=== PATIENT | male | born 1955 | race Caucasian/White ===

== ENCOUNTER 2016-12-06 09:25 | Outpatient (CLI) | payer MEDICAID ==
[~2016-12-06] VITALS: Ht 175.3 cm; Wt 82.7 kg
--- NOTE | ~2016-12-06 | HEMODYNAMI ---
PATIENT:NADEEN PEREZ MEDICAL RECORD: [id number] : 51 LOCATION:DDebCAT ADMISSION DATE: 12/06/16 Generatedon:12/06/201611:45 Patient name: NADEEN PEREZ Patient #: [id number] SSN: : 1955 Date of study: 12/06/2016 Page: Of Hemodynamic Procedure Report Patient Data Patient Demographics Procedure consent was obtained First Name: NADEEN Gender: Male Last Name: ANA : 1955 Patient #: [id number] Age: 61 year(s) Race: Additional ID: [id number] Contact details Address: [address] [place] [address] cr State: [place] [employer] Zip code: [address] Past Medical History History of disease Date Diagnosis Comments CAD Allergies: No known allergies Admission Admission Data Admission Date: 12/06/2016 Admission Time: 9:25 Lab Results Lab Result Date: 12/06/2016 Lab Result Time: 0:00 Biochemistry Name Units Result Min Max BUN mg/dl 18 --(---*)-- 7 18 Creatinine mg/dl 1.1 --(--*-)-- 0.6 1.3 CBC Name Units Result Min Max Hemoglobin g/dl 14.5 --(*---)-- 13.5 17.5 Procedure Procedure Types Cath Procedure Diagnostic Procedure [facility] w/Coronaries PCI Procedure Coronary Stent Initial Miscellaneous Procedures Moderate Sedation up to 30 minutes Procedure Description Procedure Date Procedure Date: 12/06/2016 Procedure Start Time: 11:17 Procedure End Time: 11:43 Procedure Staff Name Function Azar Sawyer MD Performing Physician Meeta Solis RN Nurse Eliud Knutson RT Monitor Jose Daniel Garvey RT Scrub Procedure Data Cath Procedure Fluoroscopy Diagnostic fluoroscopy Total fluoroscopy Time: time: 12.1 min 12.1 min Diagnostic fluoroscopy Total fluoroscopy dose: dose: 1903 mGy 1903 mGy Contrast Material Contrast Material Type Amount (ml) Isovue 300 157 Entry Location Entry Primary Successful Side Size Upsize Upsize Entry Closure Campos ccessful Closure Location (Fr) 1 (Fr) 2 (Fr) Remarks Device Remarks Radial Right 6 Fr Mechanical artery Short Compression Diagnostic catheters Device Type Used For End Catheter Placement Terumo 5Fr Basom 110cm LV Angiography catheter Procedure Complications No complications Procedure Medications Medication Administration Route Dosage Oxygen NC 2 l/min Heparin Flush Bag added to field 2 bags (1000units/500ml NS) Lidocaine 2% added to field 20 Radial Cocktail added to field 1 syringe (Verapomil 2mg/Nitro 400mcg/Heparin 1500units) Versed I.V. 1 mg Fentanyl I.V. 50 mcg Versed I.V. 1 mg Fentanyl I.V. 50 mcg Radial Cocktail I.A. 1 syringe (Verapomil 2mg/Nitro 400mcg/Heparin 1500units) Versed I.V. 1 mg Fentanyl I.V. 50 mcg Heparin Bolus I.V. 4000 units Hemodynamics Rest HGB: 14.5 (g/dl) Heart Rate: 80 (bpm) Gradients Valve Time Site Site Mean SEP/DFP Peak To Heart Use 1 2 (mmHg) (sec/min) Peak Rate (mmHg) (bpm) Aortic 11:18 LV AO 50 Snapshots Pre Cath Intra NCS Post Cath Vital Signs Time Heart Resp SPO2 NIBP (mmHg) Rhythm Pain Sedation Rate (ipm) (%) Status Level (bpm) 10:31:28 81 23 99 168/107(128) NSR 0 (11) 10(A) , No pain 10:35:50 80 16 96 168/107(161) NSR 0 (11) 10(A) , No pain 10:40:06 74 14 97 161/104(140) NSR 0 (11) 10(A) , No pain 10:44:20 76 15 96 157/104(129) NSR 0 (11) 10(A) , No pain 10:48:34 76 16 96 153/96(124) NSR 0 (11) 10(A) , No pain 10:52:44 78 16 95 146/99(120) NSR 0 (11) 10(A) , No pain 10:56:56 76 16 95 144/95(121) NSR 0 (11) 10(A) , No pain 11:01:06 76 16 94 140/93(121) NSR 0 (11) 10(A) , No pain 11:05:16 75 16 95 139/93(106) NSR 0 (11) 10(A) , No pain 11:09:23 75 16 95 133/91(106) NSR 0 (11) 10(A) , No pain 11:13:31 73 16 95 134/91(106) NSR 0 (11) 10(A) , No pain 11:17:41 74 16 96 134/88(104) NSR 0 (11) 9(A) , No pain 11:21:47 78 16 97 114/78(93) NSR 0 (11) 9(A) , No pain 11:25:51 76 15 98 117/81(97) NSR 0 (11) 9(A) , No pain 11:29:59 75 15 98 127/74(104) NSR 0 (11) 9(A) , No pain 11:34:08 74 15 97 125/77(106) NSR 0 (11) 9(A) , No pain 11:38:16 73 15 96 125/78(96) NSR 0 (11) 9(A) , No pain 11:42:26 75 16 96 124/78(105) NSR 0 (11) 9(A) , No pain Medications Time Medication Route Dose Verified Delivered Reason Note s Effectiveness by by 10:33:16 Oxygen NC 2 l/min Azar Meeta Per physician Silverio Solis RN 10:33:24 Heparin Flush added 2 bags Azar Askew used for Bag to Silverio Sawyer MD procedure (1000units/500ml field NS) 10:33:33 Lidocaine 2% added 20ml Azar Carballorey used for to vial Silverio Sawyer MD procedure field 10:33:39 Radial Cocktail added 1 Azar Azar used for (Verapomil to syringe Silverio Sawyer MD procedure 2mg/Nitro field 400mcg/Heparin 1500units) 11:12:25 Versed I.V. 1 mg Azar Meeta for sedation Silverio Solis RN 11:12:32 Fentanyl I.V. 50 mcg Azar Meeta for sedation Silverio Solis RN 11:14:20 Versed I.V. 1 mg Azar Meeta for sedation Silverio Solis RN 11:14:22 Fentanyl I.V. 50 mcg Azar Meeta for sedation Silverio Solis RN 11:16:30 Versed I.V. 1 mg Azar Garciaecca for sedation Silverio Solis RN 11:16:43 Fentanyl I.V. 50 mcg Azar Meeta for sedation Silverio Solis RN 11:17:55 Radial Cocktail I.A. 1 Azar Askew for (Verapomil syringe Silverio Sawyer MD vasodilation 2mg/Nitro 400mcg/Heparin 1500units) 11:22:03 Heparin Bolus I.V. 4000 Azar Garciaecca for dose units Silverio oSlis RN anticoagulation verified by dr sawyer Procedure Log Time Note 10:10:44 Eliud Knutson RT(R) sent for patient. Start room use. 10:17:53 Time tracking: Regular hours 10:17:56 Plan of Care:Hemodynamics will remain stable., Cardiac rhythm will remain stable., Comfort level will be maintained., Respiratory function will remain adequate., Patient/ family verbilizes understanding of procedure., Procedure tolerated without complication., Recovers from procedure without complications.. 10:28:01 Patient received from Pre/Post Procedure Room to [facility] 2 Alert and oriented. Tansferred to table in Supine position. 10:28:02 Warm blankets applied, and aleksander hugger turned on for patient comfort. 10:28:03 Correct patient and procedure confirmed by team. 10:28:04 Signed procedure consent form obtained from patient. 10:28:05 ECG and BP/O2 sat monitors applied to patient. 10:30:16 Vital chart was started 10:33:16 Oxygen 2 l/min NC was administered by Meeta Solis RN; Per physician; 10:33:24 Heparin Flush Bag (1000units/500ml NS) 2 bags added to field was administered by Azar Sawyer MD; used for procedure; 10:33:33 Lidocaine 2% 20ml vial added to field was administered by Azar Sawyer MD; used for procedure; 10:33:39 Radial Cocktail (Verapomil 2mg/Nitro 400mcg/Heparin 1500units) 1 syringe added to field was administered by Azar Sawyer MD; used for procedure; 10:37:06 Baseline sample Acquired. 10:37:11 Rhythm: sinus tachycardia 10:37:12 Full Disclosure recording started 10:38:38 H&P Date Dictated: 12/04/2016 Within 30 days and on chart., H&P Addendum completed by physician on day of procedure. (MUST COMPLETE FOR ALL OUTPATIENTS). 10:38:39 Pre-procedure instructions explained to patient. 10:38:39 Pre-op teaching completed and patient verbalized understanding. 10:38:40 Family in waiting room. 10:38:42 Patient NPO since Midnight. 10:38:49 Patient allergic to No known allergies 10:38:51 Is the patient allergic to Iodine/contrast media? No. 10:38:55 Is patient on blood thinner?Yes 10:38:57 ACC The patient was administered the following blood thiners within the last 24 hours: ACCAspirin, ACCPlavix 10:38:59 Patient diabetic? No. 10:39:00 ----Pre-sedation anethsthesia assessment.---- 10:39:03 Previous problem with sedation/anesthesia? No ? 10:39:05 Snore? Yes 10:39:06 Sleep apnea? Yes 10:39:07 Deviated septum? No 10:39:08 Opens mouth fully? Yes 10:39:09 Sticks out tongue? Yes 10:39:10 Airway obstruction? No ? 10:39:16 Dentures? Yes upper plate in 10:39:19 Pre procedure: right dorsailis pedis pulse 1+ Palpable, but thready & weak; easily obliterated 10:39:22 Modified Flavio's test Ulnar < 7 seconds 10:39:26 Patient pain scale 0/10 ?. 10:39:30 IV patent on arrival in left antecubital with 0.9% NaCl at 10ml/hr. 10:39:55 Lab Result : BUN 18 mg/dl 10:39:55 Lab Result : Hemoglobin 14.5 g/dl 10:39:55 Lab Result : Creatinine 1.1 mg/dl 10:40:00 Lab results completed and on chart. 10:40:04 Right Radial & Right Groin area was prepped with chlora-prep and draped in sterile fashion 10:40:05 Alarms reviewed by R. N. 10:40:06 Sharps counted by scrub and verified by R.N. 11:03:53 Zero performed for pressure channel P1 11:04:10 Use device set Radial Dx 11:04:11 Acist Syringe opened to sterile field. 11:04:12 Medline Cath Pack opened to sterile field. 11:04:12 Bag Decanter opened to sterile field. 11:04:13 Terumo 6Fr Slender Glidesheath opened to sterile field. 11:04:13 St Freddy 260cm J .035 wire opened to sterile field. 11:04:13 Acist Hand Control opened to sterile field. 11:04:14 Acist Manifold opened to sterile field. 11:04:14 Tegaderm 4 x 4 opened to sterile field. 11:04:15 MBrace Wrist Support opened to sterile field. 11:11:51 --------ALL STOP TIME OUT------ 11:11:52 Final Timeout: patient, procedure, and site verified with staff and physician. All members of the team are in agreement. 11:11:54 Right Radial & Right Groin site verified by team. 11:11:58 Physical assessment completed. ASA score P 2 - A patient with mild systemic disease as per Azar Sawyer MD. 11:12:01 Sedation plan: IV Moderate Sedation Versed, Fentanyl 11:12:25 Versed 1 mg I.V. was administered by Meeta Solis RN; for sedation; 11:12:32 Fentanyl 50 mcg I.V. was administered by Meetaluís Solis RN; for sedation; 11:14:20 Versed 1 mg I.V. was administered by Meetaluís Solis RN; for sedation; 11:14:22 Fentanyl 50 mcg I.V. was administered by Meetaluís Solis RN; for sedation; 11:16:30 Versed 1 mg I.V. was administered by Meetaluís Solis RN; for sedation; 11:16:37 Procedure started. 11:16:43 Fentanyl 50 mcg I.V. was administered by Meetaluís Solis RN; for sedation; 11:17:16 Local anesthetic to right radial artery with Lidocaine 2% by Azar Sawyer MD.INITIAL ACCESS ONLY 11:17:22 A 6 Fr Short sheath was inserted into the Right Radial artery 11:17:43 A Terumo 5Fr Basom 110cm catheter was advanced over the wire and used for LV Angiography. 11:17:48 LV angiography performed. 11:17:50 LV gram done using JULIAN 11:17:55 Radial Cocktail (Verapomil 2mg/Nitro 400mcg/Heparin 1500units) 1 syringe I.A. was administered by Azar Sawyer MD; for vasodilation; 11:17:55 Injector settings: Ml/sec: 7, Volume: 15, 11:18:30 EF : 55 % 11:18:34 LCA angiography performed. 11:19:42 RCA angiography performed. 11:20:13 Catheter removed. 11:20:42 ACC PCI Site: pCirc has 90% stenosis. 11:20:50 6 Fr XBLAD 3.5 guide catheter was inserted over the wire 11:22:03 Heparin Bolus 4000 units I.V. was administered by Meeta Solis RN; for anticoagulation; dose verified by dr sawyer 11:22:05 Cordis 6FR XBLAD 3.5 guide catheter opened to sterile field. 11:22:05 Merit BasixCompak Inflation Kit opened to sterile field. 11:22:06 Roach Sci Choice PT Extra Support J 300cm .014 gu opened to sterile field. 11:22:07 Roach Sci Choice PT Extra Support J 300cm .014 gu opened to sterile field. 11:22:13 ACC Pre-intervention JEREMIE Flow is 3. 11:22:27 LMCA CPTES wire advanced. 11:24:31 CX CPTES wire advanced. 11:28:06 The Medtronic Resolute 2.75 X 8 stent was advanced then removed because of failure to cross lesion 11:28:13 Wire removed. 11:28:13 Wire removed. 11:28:44 Venture 6F catheter opened to sterile field. 11:29:39 CX CPTES wire advanced. 11:30:47 Guide catheter removed. 11:30:55 VENTURE 11:31:08 LMCA/LAD CPTES wire advanced. 11:31:24 Wire removed. 11:31:32 DAMAGED 11:31:53 Roach Sci Choice PT Extra Support J 300cm .014 gu opened to sterile field. 11:32:07 NEW CPTES wire advanced. 11:34:33 The Medtronic Resolute 2.75 X 8 stent was advanced then removed because of failure to cross lesion 11:36:25 Inflation number: 1 A Euphora 2.5 x 12 Balloon was prepped and advanced across the Prox CX, then inflated to 13 PHOEBE for 0:14 (min:sec). 11:36:34 Inflation number: 2 The Euphora 2.5 x 12 Balloon was reinflated across the Prox CX, to 13 PHOEBE for 0:07 (min:sec). 11:37:04 Balloon removed over the wire. 11:38:34 Inflation Number: 3 A Medtronic Resolute 2.75 X 8 stent was prepped and advanced across the Prox CX. The stent was deployed at 13 PHOEBE for 0:12 (min:sec). 11:39:21 Stent catheter was removed intact over wire. 11:39:22 Wire removed. 11:39:27 CX 11:40:28 Wire removed. 11:40:29 Guide catheter removed. 11:40:49 Contrast amount:Isovue 300 157ml. 11:41:07 Sheath removed intact; hemostasis achieved with Mechanical Compression to the Right Radial artery. 11:41:50 Procedure ended.(Physican Out) 11:42:17 Procedure type changed to Cath procedure, Diagnostic procedure, LHC, LHC w/Coronaries, PCI procedure, Coronary Stent Initial, Miscellaneous Procedures, Moderate Sedation up to 30 minutes 11:42:42 Terumo TR Band Standard opened to sterile field. 11:42:49 Fluoroscopy time 12.10 minutes. 11:42:54 Fluoroscopy dose: 1903 mGy 11:42:54 Flurop Dose total: 1903 11:42:55 Sharps counted by scrub and verified by R.N. 11:42:58 TR band inflated with 10cc of air. 11:42:59 Insertion/operative site no bleeding no hematoma. 11:43:03 Post right radial artery:stable 11:43:05 Post Procedure Pulses reassessed and unchanged 11:43:09 Post procedure rhythm: sinus rhythm 11:43:10 Post procedure instruction explained to patient.Patient verbalizes understanding. 11:43:40 Procedure and supply charges have been captured, reviewed, submitted and are correct. 11:43:44 Procedure Complication : No complications 11:43:46 Vital chart was stopped 11:43:46 See physician's report for complete and final results. 11:43:47 Report given to Pre/Post Procedure Room. 11:43:50 Patient transfered to Pre/Post Procedure Room with Stretcher. 11:43:52 Procedure ended. 11:43:52 Full Disclosure recording stopped 11:43:56 End room use (Document Last) Intervention Summary Intervention Notes Time ActionType Lesion and Equipment Action# Pressure Duration Attributes Used 11:28:06 Discard Medtronic Stent Resolute 2.75 X 8 stent 11:34:33 Discard Medtronic Stent Resolute 2.75 X 8 stent 11:36:25 Inflate Prox CX Euphora 1 13 00:14 balloon 2.5 x 12 Balloon 11:36:34 Reinflate Prox CX Euphora 2 13 00:07 balloon 2.5 x 12 Balloon 11:38:34 Place stent Prox CX Medtronic 3 13 00:12 Resolute 2.75 X 8 stent Device Usage Item Name Manufacture Quantity Catalog Number Hospital Part Current Minim al Lot# / Charge Number Stock Stock Serial# Code Acist Acist 1 24445 169642 498680 165286 20 Syringe Medical Systems Inc Medline Cardinal 1 [id number] 371543 20663 511947 5 Cath Pack Health Bag Microtek 1 2002S 443567 72974 272408 5 PodTech Medical Inc. Terumo 6Fr Terumo 1 [id number] 909647 217054 715885 [address] St Freddy 1 775188 612190 182504 855427 30 260cm J .035 wire Acist Hand Acist 1 59780 772478 369386 306855 5 Control Medical Systems Inc Acist Acist 1 01659 574932 442639 609090 5 Manifold Medical Systems Inc Tegaderm 4 3M 1 1626W 422198 645964 620664 5 x 4 MBrace Advanced 1 140-0250-00 389363 38196 164734 5 Wrist Vascular Support Dynamics Terumo 5Fr Terumo 1 04-5779 583136 456803 415901 5 Basom 110cm catheter Cordis 6FR Cardinal 1 [id number] 579091 254372 810933 10 XBLAD 3.5 Health guide catheter Merit Merit 1 IH4448 275123 121727 490268 15 iNeoMarketing Medical Inflation Kit Roach Sci Roach 3 [id number] 517346 074121 397990 5 [id number] Choice PT Scientific [id number] Extra [id number] Support J 300cm .014 gu Medtronic Medtronic 1 [id number] 242959 889659 0 [id number] Resolute 2.75 X 8 stent Venture 6F Vascular 1 5821 569490 908435 691785 1 996626 catheter Solutions Euphora 2.5 Medtronic 1 [id number] 131039 901662 251982 5 [id number] x 12 Balloon Terumo TR Terumo 1 [id number] 565347 187626 673701 40 Band Standard Signature Audit [place] Stage Time Signature Unsigned Intra-Procedure 12/06/2016 Eliud Knutson 11:44:55 AM RT(R) Signatures Monitor : Eliud Knutson RT Signature : Date : Time : [address] [place] [address]
[~2016-12-06 09:25] MED LIST: BAYER CHEWABLE81 MG PO; CELEXA10 MG PO; COLACE100 MG PO; FOLIC ACID1 MG PO; HYDROCODON-ACE1 EAC7 PO; ISOSORBIDE MONO20 MG PO; METHOTREXATE2.5 MG PO; NITROQUICK0.4 MG SL; ORAPRED ODT10 MG/TAB PO; PLAVIX75 MG PO; TOPROL XL25 MG PO; VOLTAREN75 MG PO; ZESTRIL40 MG PO; ZOVIRAX800 MG PO
[2016-12-06] MEDS ORDERED: FOLIC ACID1 MG PO (10:03)
[2016-12-06] MEDS ORDERED: PREDNISONE5 MG PO (10:04)
[2016-12-06] MEDS ORDERED: PROTONIX40 MG PO (10:05)
[2016-12-06 10:12] LABS: BASOPHILS 0.3 % (0.0-2.0); EOSINOPHILS 2.9 % (0-7); HEMATOCRIT 41.7 % (42.0-54.0); HEMOGLOBIN 14.5 g/dL (13.5-17.5); IMMATURE GRANULOCYTES 0.5 % (0-5); LYMPHOCYTES 14.8 % (15-50); MCH 32.7 pg (26.0-34.0); MCHC 34.8 g/dL (31.0-37.0); MCV 94.1 fL (80.0-100.0); MEAN PLATELET VOLUME 9.2 fL (7.4-10.4); MONOCYTES 6.4 % (2-11); NEUTROPHILS 75.1 % (40-80); PLATELET COUNT 360 10x3/uL (130-400); RBC 4.43 10x6/uL (4.20-6.10); RDW 14.4 % (11.5-14.5); WBC 10.3 10x3/uL (4.8-10.8)
[2016-12-06 10:15] VITALS: BP 138/79; Ht 175.3 cm; Wt 82.7 kg
[2016-12-06 10:23] LABS: ANION GAP 14.8 mmol/L (8-16); CALCIUM 9.2 mg/dL (8.5-10.1); CARBON DIOXIDE 25.3 mmol/L (21.0-32.0); CREATININE - SERUM 1.1 mg/dL (0.6-1.3); POTASSIUM - SERUM 4.1 mmol/L (3.5-5.1)
[2016-12-06] MEDS ORDERED: PRAVACHOL40 MG PO (12:08)
--- NOTE | 2016-12-06 12:41 | NUR ---
1200-RESTING WITH EYES CLOSED, WRIST WITH TR BAND IN PLACE, SON AT SIDE, VSS 1230-NO CHANGES NOTED
--- NOTE | 2016-12-06 17:25 | NUR ---
1500-AWAKE, SANDWICH SERVED WITH COFFEE, STATES "i FEEL LIKE GOING DANCING".
--- NOTE | 2016-12-06 17:40 | NUR ---
1545-TR BAND OFF PER PROTOCOL-NO BLEEDING OR HEMATOMA NOTED, IV D'C WITH CATH TIP INTACT. WRITTEN AND VERBAL INSTRUCTIONS GIVEN TO PT AND SON.
--- NOTE | 2016-12-07 08:41 | OP ---
PATIENT NAME: NADEEN PEREZ MEDICAL RECORD: [id number] :51 LOCATION:D.CAT ADMISSION DATE: SURGEON: WILLY BUTLER MD DATE OF OPERATION: 12/06/2016 PROCEDURES: 1. PTCA stent left circumflex. 2. Left heart catheterization. 3. Selective coronary angiography. 4. Left ventriculogram. INDICATION: Angina and coronary artery disease. PROCEDURE IN DETAIL: After informed consent was obtained and after a detailed explanation of the risks, benefits as well as alternative therapies, the patient elected to proceed with angiogram and angioplasty. The right radial area was prepped and draped in normal sterile fashion. The right radial artery was cannulated via modified Seldinger technique with placement of 6-Kazakh sheath. All catheters exchanged through this sheath. FINDINGS: The left ventriculogram was performed in standard 30-degree JULIAN view, reveals good cardiac wall motion throughout all segments. Overall ejection fraction is 60%. SELECTIVE CORONARY ANGIOGRAPHY: 1. Left main showed no significant angiographic disease. 2. Left anterior descending has previously placed stents; these are widely patent with no significant restenosis. No disease elsewise throughout the LAD or its branches. 3. Left circumflex has 90% stenosis at the ostium. 4. Right coronary has moderate irregularities, but no flow-limiting stenosis. PTCA STENT OF THE LEFT CIRCUMFLEX: The stent used is a 2.75 x 8 mm Resolute. Result was 0% residual stenosis. OVERALL IMPRESSION: Successful percutaneous transluminal coronary angioplasty stent of the left circumflex going from 90% initial stenosis to 0% residual. TRANSINT:[id number] Voice Confirmation ID: [id number] DOCUMENT ID: [id number] WILLY BUTLER MD at 0841 CC: [id number] DICTATION DATE: 12/06/16 1145 PUMP OPERATOR BYPRODUCTS: 12/06/16 1941 [facility] CLI 12/06/16 [place] [address]
== END 2016-12-06 16:00 | disposition home or self-care (01) ==
LOC: D.CATH 09:25
PROVIDERS: Internal Medicine Interventional Cardiology
DX: I25.119 Atherosclerotic heart disease of native coronary artery with unspecified angina pectoris (principal)

== ENCOUNTER 2017-02-21 07:41 | Outpatient (CLI) | payer MEDICAID ==
[~2017-02-21] VITALS: Ht 175.3 cm; Wt 81.4 kg
--- NOTE | ~2017-02-21 | HEMODYNAMI ---
PATIENT:NADEEN PEREZ MEDICAL RECORD: [id number] : 51 LOCATION:D.CAT ADMISSION DATE: 02/21/17 Generatedon:02/21/201710:25 Patient name: NADEEN PEREZ Patient #: [id number] SSN: : 1955 Date of study: 02/21/2017 Page: Of Hemodynamic Procedure Report Patient Data Patient Demographics Procedure consent was obtained First Name: NADEEN Gender: Male Last Name: ANA : 1955 Patient #: [id number] Age: 61 year(s) Race: Additional ID: [id number] Contact details Address: [address] [place] [address] cr State: [facility] Zip code: [address] Past Medical History History of disease Date Diagnosis Comments CAD Allergies: No known allergies Admission Admission Data Admission Date: 02/21/2017 Admission Time: 7:41 Lab Results Lab Result Date: 02/21/2017 Lab Result Time: 0:00 Biochemistry Name Units Result Min Max Creatinine mg/dl 1.1 --(--*-)-- 0.6 1.3 CBC Name Units Result Min Max Hemoglobin g/dl 13.2 -*(----)-- 13.5 17.5 Procedure Procedure Types Cath Procedure Diagnostic Procedure [facility] w/Coronaries PCI Procedure Coronary Stent Initial Miscellaneous Procedures Moderate Sedation up to 45 minutes Procedure Description Procedure Date Procedure Date: 02/21/2017 Procedure Start Time: 10:11 Procedure End Time: 10:24 Procedure Staff Name Function Azar Sawyer MD Performing Physician Rose Marie Kirkpatrick RN Nurse Donya Claire RT Monitor Roseanne Gregorio RN Team Truck Driver Rigo Gerardo RT Scrub Procedure Data Cath Procedure Fluoroscopy Diagnostic fluoroscopy Total fluoroscopy Time: 1.9 time: 1.9 min min Diagnostic fluoroscopy Total fluoroscopy dose: dose: 266.15 mGy 266.15 mGy Contrast Material Contrast Material Type Amount (ml) Isovue 300 80 Entry Location Entry Primary Successful Side Size Upsize Upsize Entry Closure Succes sful Closure Location (Fr) 1 (Fr) 2 (Fr) Remarks Device Remarks Femoral Right 5 Fr 6 Fr Exoseal artery Short Estimated blood loss: 10 ml Diagnostic catheters Device Type Used For End Catheter Placement Cordis 5Fr Pigtail LV Angiography Catheter (MP) Cordis 5Fr JL 4.0 Left Coronary Catheter (MP) Angiography Cordis 5Fr 3DRC Catheter Right Coronary (MP) Angiography Procedure Complications No complications Procedure Medications Medication Administration Route Dosage Oxygen NC 2 l/min Heparin Flush Bag added to field 2 bags (1000units/500ml NS) Lidocaine 2% added to field 20 Benadryl I.V. 50 mg Fentanyl I.V. 50 mcg Versed I.V. 1 mg Fentanyl I.V. 25 mcg Versed I.V. 0.5 mg Heparin Bolus I.V. 4000 units Hemodynamics Rest HGB: 13.2 (g/dl) Heart Rate: 53 (bpm) Snapshots Pre Cath Intra NCS Post Cath Vital Signs Time Heart Resp SPO2 NIBP (mmHg) Rhythm Pain Sedation Rate (ipm) (%) Status Level (bpm) 9:27:24 51 16 100 186/96(121) NSR 0 (11) 10(A) , No pain 9:32:51 51 18 100 170/104(145) NSR 0 (11) 10(A) , No pain 9:37:14 55 17 100 175/103(129) NSR 0 (11) 10(A) , No pain 9:41:34 50 22 100 170/103(141) NSR 0 (11) 10(A) , No pain 9:46:47 52 20 100 163/102(115) NSR 0 (11) 10(A) , No pain 9:51:59 51 16 100 162/92(103) NSR 0 (11) 10(A) , No pain 9:56:19 53 17 99 145/102(114) NSR 0 (11) 9(A) , No pain 10:00:37 53 20 100 147/92(115) NSR 0 (11) 9(A) , No pain 10:04:47 52 22 100 147/99(117) NSR 0 (11) 9(A) , No pain 10:08:54 53 21 100 139/97(113) NSR 0 (11) 9(A) , No pain 10:13:09 55 21 100 147/95(137) NSR 0 (11) 9(A) , No pain 10:17:26 58 18 99 162/96(126) NSR 0 (11) 9(A) , No pain 10:21:45 60 19 98 158/106(119) NSR 0 (11) 9(A) , No pain Medications Time Medication Route Dose Verified Delivered Reason Notes Effectiveness by by 9:28:08 Oxygen NC 2 Rose Marie Rose Marie used for l/min Kirkpatrick Kirkpatrick wet milling wheel operator RN 9:28:15 Heparin Flush added 2 Rose Marie Rose Marie used for Bag to bags Kirkpatrick Kirkpatrick procedure (1000units/500ml field RN RN NS) 9:28:59 Lidocaine 2% added 20ml Rose Marie Rose Marie used for to vial Kirkpatrick Kirkpatrick procedure field RN RN 9:29:11 Benadryl I.V. 50 mg Rose Marie Rose Marie Per physician Casimiro Kirkpatrick RN RN 9:52:23 Fentanyl I.V. 50 Rose Marie Rose Marie for sedation mcg Casimiro Kirkpatrick RN RN 9:52:29 Versed I.V. 1 mg Rose Marie Rose Marie for sedation Kirkpatricktrae Kirkpatrick RN RN 10:12:22 Fentanyl I.V. 25 Rose Marie Rose Marie for sedation mcg Casimiro Kirkpatrick RN RN 10:12:25 Versed I.V. 0.5 Rose Marie Rose Marie for sedation mg Casimiro Kirkpatrick RN RN 10:17:48 Heparin Bolus I.V. 4000 Rose Marie Rose Marie for 4000 units Kirkpatrick Kirkpatrick anticoagulation unit RN RN heparin bolus verified by Dr. Sawyer Procedure Log Time Note 9:18:20 Roseanne Gregorio RN sent for patient. Start room use. 9:18:22 Time tracking: Regular hours 9:18:26 Plan of Care:Hemodynamics will remain stable., Cardiac rhythm will remain stable., Comfort level will be maintained., Respiratory function will remain adequate., Patient/ family verbilizes understanding of procedure., Procedure tolerated without complication., Recovers from procedure without complications.. 9:19:37 Patient received from Pre/Post Procedure Room to CCL 3 Alert and oriented. Tansferred to table in Supine position. 9:19:38 Warm blankets applied, and aleksander hugger turned on for patient comfort. 9:19:38 Correct patient and procedure confirmed by team. 9:19:40 Signed procedure consent form obtained from patient. 9:19:40 ECG and BP/O2 sat monitors applied to patient. 9:19:41 Full Disclosure recording started 9:26:04 Vital chart was started 9:28:08 Oxygen 2 l/min NC was administered by Rose Marie Kirkpatrick RN; used for procedure; 9:28:15 Heparin Flush Bag (1000units/500ml NS) 2 bags added to field was administered by Rose Marie Kirkpatrick RN; used for procedure; 9:28:53 Baseline sample Acquired. 9:28:59 Lidocaine 2% 20ml vial added to field was administered by Rose Marie Kirkpatrick RN; used for procedure; 9:28:59 Rhythm: sinus rhythm 9:29:11 Benadryl 50 mg I.V. was administered by Rose Marie Kirkpatrick RN; Per physician; 9:29:13 H&P Date Dictated: 01/30/2017 Within 30 days and on chart., H&P Addendum completed by physician on day of procedure. (MUST COMPLETE FOR ALL OUTPATIENTS). 9:29:15 Pre-procedure instructions explained to patient. 9:29:15 Pre-op teaching completed and patient verbalized understanding. 9:29:17 Family in waiting room. 9:29:19 Patient NPO since Midnight. 9:29:27 Patient allergic to No known allergies 9:29:31 Is the patient allergic to Iodine/contrast media? No. 9:29:32 Is patient on blood thinner?Yes 9:29:35 ACC The patient was administered the following blood thiners within the last 24 hours: ACCAspirin, ACCPlavix 9:29:46 Patient diabetic? No. 9:29:56 Previous problem with sedation/anesthesia? No ? 9:29:57 Snore? Yes 9:29:58 Sleep apnea? No 9:29:59 Deviated septum? No 9:30:00 Opens mouth fully? Yes 9:30:01 Sticks out tongue? Yes 9:30:04 Airway obstruction? No ? 9:30:09 Dentures? Yes PARTIAL IN 9:30:21 Pre procedure: right dorsailis pedis pulse 2+ Normal; easily identifiable; not easily obliterated 9:30:26 Patient pain scale 0/10 ?. 9:30:31 IV patent on arrival in left hand with 0.9% NaCl at [facility]. 9:31:07 Lab Result : Creatinine 1.1 mg/dl 9:31:08 Lab Result : Hemoglobin 13.2 g/dl 9:31:11 Lab results completed and on chart. 9:31:13 Right groin area was prepped with chlora-prep and draped in sterile fashion 9:31:14 Alarms reviewed by R. N. 9:31:14 Sharps counted by scrub and verified by R.N. 9:31:17 Use device set Femoral Dx 9:31:18 Acist Syringe opened to sterile field. 9:31:19 Bag Decanter opened to sterile field. 9:31:19 Medline Cath Pack opened to sterile field. 9:31:20 Terumo 5Fr Riverside Sheath opened to sterile field. 9:31:22 St Freddy 260cm J .035 wire opened to sterile field. 9:31:26 Acist Hand Control opened to sterile field. 9:31:27 Acist Manifold opened to sterile field. 9:31:28 Diagnostic Infinity 5Fr Multipack catheter opened to sterile field. 9:31:28 Tegaderm 4 x 4 opened to sterile field. 9:38:04 Zero performed for pressure channel P1 9:51:08 Final Timeout: patient, procedure, and site verified with staff and physician. All members of the team are in agreement. 9:51:10 Right groin site verified by team. 9:51:13 Physical assessment completed. ASA score P 2 - A patient with mild systemic disease as per Azar Sawyer MD. 9:51:18 Sedation plan: IV Moderate Sedation Versed, Fentanyl 9:52:23 Fentanyl 50 mcg I.V. was administered by Rose Marie Kirkpatrick RN; for sedation; 9:52:29 Versed 1 mg I.V. was administered by Rose Marie Kirkpatrick RN; for sedation; 10:11:30 Procedure started. 10:11:33 Local anesthetic to right femoral artery with Lidocaine 2% by Azar Sawyer MD.INITIAL ACCESS ONLY 10:12:11 A 5 Fr sheath was inserted into the Right Femoral artery 10:12:22 Fentanyl 25 mcg I.V. was administered by Rose Marie Kirkpatrick RN; for sedation; 10:12:25 Versed 0.5 mg I.V. was administered by Rose Marie Kirkpatrick RN; for sedation; 10:12:46 A Cordis 5Fr Pigtail Catheter (MP) was advanced over the wire and used for LV Angiography. 10:12:57 LV gram done using JULIAN 10:13:01 EF : 60 % 10:13:06 Injector settings: Ml/sec: 10, Volume: 20, 10:13:08 Catheter removed. 10:13:21 A Cordis 5Fr JL 4.0 Catheter (MP) was advanced over the wire and used for Left Coronary Angiography. 10:14:29 Catheter removed. 10:15:02 A Cordis 5Fr 3DRC Catheter (MP) was advanced over the wire and used for Right Coronary Angiography. 10:15:22 Ha[place]ack BasixCompak Inflation Kit opened to sterile field. 10:15:23 Spivey Whisper J 300cm 0.014 guide wire opened to sterile field. 10:15:23 Terumo 6Fr Riverside Sheath opened to sterile field. 10:15:32 Cordis 6FR XBLAD 3.5 guide catheter opened to sterile field. 10:15:45 Sheath upsized to a 6 Fr Short. 10:17:01 6 Fr xblad 3.5 guide catheter was inserted over the wire 10:17:35 WHISPER wire advanced. 10:17:48 Heparin Bolus 4000 units I.V. was administered by Rose Marie Kirkpatrick RN; for anticoagulation; 4000 unit heparin bolus verified by Dr. Sawyer 10:19:08 Inflation Number: 1 A Medtronic Resolute 3.0 X 9 stent was prepped and advanced across the Prox LAD. The stent was deployed at 13 PHOEBE for 0:04 (min:sec). 10:19:25 Stent catheter was removed intact over wire. 10:19:26 Wire removed. 10:19:27 Guide catheter removed. 10:20:17 Cordis 6Fr Exoseal opened to sterile field. 10:20:25 Sheath removed intact; hemostasis achieved with Exoseal to the Right Femoral artery. 10:20:28 Procedure ended.(Physican Out) 10:20:55 Fluoroscopy time 01.90 minutes. 10:21:02 Flurop Dose total: 266.15 10:21:02 Fluoroscopy dose: 266.15 mGy 10:21:06 Contrast amount:Isovue 300 80ml. 10:21:07 Sharps counted by scrub and verified by R.N. 10:21:09 Insertion/operative site no bleeding no hematoma. 10:21:13 Post-op/insertion site Right Femoral artery dressed using a 4 x 4 and Tegaderm. 10:21:16 Post right femoral artery:stable, clean and dry 10:21:17 Post Procedure Pulses reassessed and unchanged 10:21:20 Post-procedure physical assessment completed. ASA score P 2 - A patient with mild systemic disease as per Azar Sawyer MD. 10:21:24 Post procedure rhythm: unchanged. 10:21:29 Estimated blood loss: 10 ml 10:21:31 Post procedure instruction explained to patient.Patient verbalizes understanding. 10:21:31 Patient needs reinforcement of post procedure teaching. 10:21:45 Procedure type changed to Cath procedure, Diagnostic procedure, LHC, LHC w/Coronaries, PCI procedure, Coronary Stent Initial, Miscellaneous Procedures, Moderate Sedation up to 45 minutes 10:21:50 Procedure Complication : No complications 10:21:53 See physician's report for complete and final results. 10:22:41 Procedure and supply charges have been captured, reviewed, submitted and are correct. 10:24:30 Vital chart was stopped 10:24:31 Report given to Pre/Post Procedure Room. 10:24:35 Patient transfered to Pre/Post Procedure Room with Stretcher. 10:24:41 Procedure ended. 10:24:41 Full Disclosure recording stopped 10:24:45 End room use (Document Last) Intervention Summary Intervention Notes Time ActionType Lesion and Equipment Action# Pressure Duration Attributes Used 10:19:08 Place stent Prox LAD Medtronic 1 13 00:04 Resolute 3.0 X 9 stent Device Usage Item Name Manufacture Quantity Catalog Hospital Part Current Minimal Lot# / Number Charge Number Stock Stock Serial# Code Acist Acist 1 [id number] 079411 436563 20 Syringe [employer] Inc Bag Microtek 1 2002S 659258 80557 789671 5 [employer] Medline Cardinal 1 [id number] 192914 88145 305490 5 Culture Jam Terumo 5Fr Terumo 1 [id number] 857486 592451 040950 [address] Freddy 1 328581 322018 255195 863419 30 260cm J .035 wire Acist Hand Acist 1 06726 487632 233105 692758 5 Control [employer] Inc Acist Acist 1 66347 656934 057024 762813 5 [facility] [employer] Diagnostic Cardinal 1 [id number] 663492 43899 179903 30 Infinity Health 5Fr Multipack catheter Tegaderm 4 3M 1 1626W 932335 293583 283655 5 x 4 Cordis 5Fr Cardinal 1 [id number] 5 Pigtail Health Catheter (MP) Cordis 5Fr Cardinal 1 [id number] 5 JL 4.0 Health Catheter (MP) Cordis 5Fr Cardinal 1 611861 5 3DRC Health Catheter (MP) [facility] 1 [id number] 609353 525891 970597 15 BasixCompak Medical Inflation Kit Spivey Spivey 1 [id number] 384639 444449 934107 5 Whisper J Vascular 300cm 0.014 guide wire Terumo 6Fr Terumo 1 [id number] 461984 624232 958075 40 Riverside Sheath Cordis 6FR Cardinal 1 [id number] 174959 187697 534077 10 XBLAD 3.5 Health guide catheter Medtronic Medtronic 1 [id number] 489598 631574 9 [id number] Resolute 3.0 X 9 stent Cordis 6Fr Cardinal 1 EX600 021514 658501 516310 10 [facility] ExtraFootie Signature Audit [place] Stage Time Signature Unsigned Intra-Procedure 02/21/2017 Donya 10:24:56 AM Counts RT(R) Signatures Monitor : Donya Signature : Counts RT Date : Time : [id number] [place] [address]
[~2017-02-21 07:41] MED LIST changes: +PRAVACHOL40 MG PO; +PREDNISONE5 MG PO; +PROTONIX40 MG PO
[2017-02-21] MEDS ORDERED: HYDROCODONE-APA1 TAB PO (08:06)
[2017-02-21] MEDS ORDERED: XELJANZ XR (08:09)
[2017-02-21 08:10] VITALS: BP 157/91; Ht 175.3 cm; Wt 81.4 kg
[2017-02-21 08:12] LABS: BASOPHILS 0.1 % (0-2); EOSINOPHILS 2.5 % (0-7); HEMATOCRIT 37.7 % (42.0-54.0); HEMOGLOBIN 13.2 g/dL (13.5-17.5); IMMATURE GRANULOCYTES 0.2 % (0-5); LYMPHOCYTES 21.4 % (15-50); MCH 33.5 pg (26.0-34.0); MCV 95.7 fL (80.0-100.0); MEAN PLATELET VOLUME 9.9 fL (7.4-10.4); MONOCYTES 8.4 % (2-11); NEUTROPHILS 67.4 % (40-80); PLATELET COUNT 283 10x3/uL (130-400); RBC 3.94 10x6/uL (4.20-6.10); RDW 13.7 % (11.5-14.5); WBC 8.4 10x3/uL (4.8-10.8)
[2017-02-21 08:20] LABS: ANION GAP 14.8 mmol/L (8-16); CALCIUM 8.2 mg/dL (8.5-10.1); CARBON DIOXIDE 24.2 mmol/L (21.0-32.0); CREATININE - SERUM 1.1 mg/dL (0.6-1.3)
--- NOTE | 2017-02-21 10:44 | NUR ---
1035 RECEIVED PT FROM [employer]. PT IS SLEEPING, AWAKENS TO VERBAL STIMULI. DENIES ANY C/O. DRESSING TO RIGHT GROIN IS CDI, NO BLEEDING OR HEMATOMA NOTED. AREA IS SOFT AND NONTENDER. RR EVEN AND UNLABORED ON O2 AT 2 LPM VIA NC. WILL CONTINUE TO MONITOR.
--- NOTE | 2017-02-21 10:53 | NUR ---
1050 RIGHT GROIN DRESSING IS CDI, AREA IS SOFT AND NONTENDER. PEDAL PULSES PALPABLE. PT SLEEPING BUT AWAKENS TO VERBAL STIMULI. DENIES ANY C/O AT THIS TIME. RR IS EVEN AND UNLABORED.
--- NOTE | 2017-02-21 11:34 | NUR ---
1125 PT SLEEPING, AWAKENS EASILY TO VERBAL STIMULI, DENIES ANY C/O. DRESSING TO RIGHT GROIN IS CDI, AREA IS SOFT AND NONTENDER. PEDAL PULSES PALPABLE. VSS. WILL CONTINUE TO MONITOR.
--- NOTE | 2017-02-21 13:00 | NUR ---
CHEST PAIN DENIED WITH VSS. 6 FR EXOSEAL R/GROIN CDI NO BLEEDING NO HEMATOMA NOTED. SANDWICH AND SODA TO BEDSIDE WITH FAMILY TO ASSIST. 1330 NO CHANGE IN ASSESSMENT PATIENT DENIED PAIN OR NEEDS FAMILY AT SIDE
--- NOTE | 2017-02-21 14:10 | NUR ---
1400 PT HAS LORENA SANDWICH AND PO FLUIDS WITH NO C/O. RIGHT GROIN DRESSING IS CDI, PEDAL PULSES PALPABLE. PT DENIES ANY C/O. FAMILY AT BEDSIDE.
--- NOTE | 2017-02-21 14:35 | NUR ---
1415 IV DC'D WITH CATH INTACT. DRESSING TOP RIGHT GROIN IS CDI WITH NO BLEEDING OR HEMATOMA NOTED. DENIES ANY C/O CHEST PAIN. DRESSING FOR DC TO HOME.
--- NOTE | 2017-02-21 14:36 | NUR ---
1430 REVIEWED DC INSTRUCTIONS WITH PT WHO VERBALIZES UNDERSTANDING. PT ESCORTED TO PRIVATE AUTO VIA WC BY STAFF WITH FRIEND DRIVING HIM HOME.
--- NOTE | 2017-02-22 08:49 | OP ---
PATIENT NAME: NADEEN PEREZ MEDICAL RECORD: [id number] :51 LOCATION:D.CAT ADMISSION DATE: SURGEON: WILLY BUTLER MD DATE OF OPERATION: 02/21/2017 PROCEDURES: 1. PTCA stent LAD. 2. Left heart catheterization. 3. Selective coronary angiography. 4. Left ventriculogram. INDICATION: Angina, coronary artery disease, abnormal nuclear stress test with anteroapical ischemia. PROCEDURE: After informed consent was obtained and after detailed explanation of risks, benefits as well as alternative therapies, the patient elected to proceed with angiogram and angioplasty. The right femoral area was prepped and draped in normal sterile fashion. The right femoral artery was cannulated via modified Seldinger technique with placement of 6-Spanish sheath. All catheters exchanged through this sheath. FINDINGS: The left ventriculogram was performed in the standard 30-degree JULIAN view reveals good cardiac wall motion throughout all segments. Overall ejection fraction estimated at 60%. SELECTIVE CORONARY ANGIOGRAPHY: 1. Left main showed no significant angiographic disease. 2. Left anterior descending has previously placed stents. There is at least 80% stenosis at the ostium, otherwise only moderate irregularities. 3. Left circumflex shows moderate irregularities, but no flow-limiting stenosis. 4. Right coronary has moderate irregularities, but no flow-limiting stenosis. PTCA STENT OF THE OSTIUM TO LAD: The stent used was a 3.0 x 9 mm Resolute. Result was 0% residual stenosis. OVERALL IMPRESSION: Successful percutaneous transluminal coronary angioplasty stent of the left anterior descending going from greater than 80% initial stenosis at the ostium to 0% residual stenosis. TRANSINT:[id number] Voice Confirmation ID: [id number] DOCUMENT ID: [id number] WILLY BUTLER MD at 0849 CC: [id number] DICTATION DATE: 02/21/17 1023 OVERAGE SHORTAGE AND DAMAGE CLERK: 02/21/17 1251 DEP CLI 02/21/[address] [address]
== END 2017-02-21 14:30 | disposition home or self-care (01) ==
LOC: D.CATH 07:41
PROVIDERS: Internal Medicine Interventional Cardiology
DX: I25.119 Atherosclerotic heart disease of native coronary artery with unspecified angina pectoris (principal); R94.39 Abnormal result of other cardiovascular function study; Z01.812 Encounter for preprocedural laboratory examination